=== PATIENT | female | born 1960 | race Caucasian/White ===

== ENCOUNTER 2017-01-11 14:53 | Observation (INO) | payer BC ==
[2017-01-11] MEDS ORDERED: TRAMADOL HCL 50 MG TABLET PO ONE (16:30)
[2017-01-11] MEDS ORDERED: ONDANSETRON HCL INJ/PF 4 MG/2 ML SDV IV PRN (17:19)
[2017-01-11] MEDS ORDERED: HYDRALAZINE HCL INJ/PF 20 MG/1 ML SDV IV PRN (17:24)
--- NOTE | 2017-01-11 17:50 | PDOC H&P ---
History of Present Illness Admission Date/PCP: 01/11/17 14:53 IMTIAZ OCHOA MD Patient complains of: Dizziness History of Present Illness: QUITA ENRIQUE is a 56 year old female, With no significant past medical history has been dealing with dizziness for the past month or so. It is more of lightheadedness and pressure in the head. Patient had long history of seasonal allergies and sinus allergies. The patient feels like she is to get a fall when she stooped forward and she will feel lightheaded and dizzy when she suddenly moves her head. This has been ongoing for the past month or so with associated palpitation and sometimes sweating but no nausea or vomiting. Patient will start developing some chest discomfort. This is characterized more localized and pounding heartbeat. Today while at work symptoms got worse and she almost passed out with sensation of darkening. She saw her primary care physician. Her blood pressure was noted to be elevated 190. She was then referred for admission. Concern about secondary hypertension causing her symptoms. Past Medical History Cardiac Medical History: Denies: Coronary Artery Disease, Myocardial Infarction, Hypertension Pulmonary Medical History: Reports: Other - Seasonal allergic rhinitis Denies: Asthma, Bronchitis, Chronic Obstructive Pulmonary Disease (COPD), Pneumonia Neurological Medical History: Denies: Seizures Musculoskeltal Medical History: Denies: Arthritis Hematology: Denies: Anemia Past Surgical History Past Surgical History: Reports: Cholecystectomy, Hysterectomy Social History Information Source: Patient Smoking Status: Never Smoker Frequency of Alcohol Use: Occasional Hx Recreational Drug Use: No Drugs: None Hx Prescription Drug Abuse: No Family History Family History: Hypertension, Other - Heart disease Parental Family History Reviewed: Yes Children Family History Reviewed: Yes Sibling(s) Family History Reviewed.: Yes Medication/Allergy Home Medications: Estrogens,Conjugated [Premarin 0.625 mg Tablet] 1 tab PO DAILY 11/25/13 Oxycodone HCl/Acetaminophen [Percocet 5-325 mg Tablet] 1 tab PO Q4HP 11/25/13 Allergies/Adverse Reactions: No Known Allergies Allergy (Unverified 11/25/13 08:37) Review of Systems Constitutional: PRESENT: headache(s) - Occasional. ABSENT: chills, fever(s), night sweats, weakness, weight gain, weight loss Eyes: PRESENT: visual disturbances - blurring of vision during the episode Ears: ABSENT: hearing changes Nose, Mouth, and Throat: ABSENT: mouth pain, sore throat Cardiovascular: PRESENT: chest pain - Pressure and tightness. ABSENT: dyspnea on exertion, edema, orthropnea, palpitations Respiratory: PRESENT: dyspnea. ABSENT: cough, hemoptysis, sputum Gastrointestinal: ABSENT: abdominal pain, constipation, diarrhea, hematemesis, hematochezia, nausea, vomiting Genitourinary: ABSENT: dysuria, hematuria Musculoskeletal: ABSENT: joint swelling Integumentary: ABSENT: rash, wounds Neurological: ABSENT: abnormal gait, abnormal speech, confusion, dizziness, focal weakness, syncope Psychiatric: ABSENT: anxiety, depression, homidical ideation, suicidal ideation Endocrine: ABSENT: cold intolerance, heat intolerance, polydipsia, polyuria Hematologic/Lymphatic: ABSENT: easy bleeding, easy bruising Physical Exam Vital Signs: Temp Pulse Resp BP Pulse Ox 98.4 F 65 16 171/75 H 100 01/11/17 15:48 01/11/17 15:48 01/11/17 15:48 01/11/17 15:48 01/11/17 15:48 Intake & Output 01/10/17 01/11/17 01/12/17 06:59 06:59 06:59 Weight 59.5 kg General appearance: PRESENT: no acute distress, well-developed, well-nourished Head exam: PRESENT: atraumatic, normocephalic Eye exam: PRESENT: conjunctiva pink, EOMI, PERRLA. ABSENT: scleral icterus Ear exam: PRESENT: normal external ear exam Mouth exam: PRESENT: moist, tongue midline Neck exam: ABSENT: carotid bruit, JVD, lymphadenopathy, thyromegaly Respiratory exam: PRESENT: clear to auscultation soraya. ABSENT: rales, rhonchi, wheezes Cardiovascular exam: PRESENT: RRR. ABSENT: diastolic murmur, rubs, systolic murmur Pulses: PRESENT: normal dorsalis pedis pul Vascular exam: PRESENT: normal capillary refill GI/Abdominal exam: PRESENT: normal bowel sounds, soft. ABSENT: distended, guarding, mass, organolmegaly, rebound, tenderness Rectal exam: PRESENT: deferred Extremities exam: PRESENT: full ROM. ABSENT: calf tenderness, clubbing, pedal edema Neurological exam: PRESENT: alert, awake, oriented to person, oriented to place , oriented to time, oriented to situation Psychiatric exam: PRESENT: appropriate affect, normal mood. ABSENT: homicidal ideation, suicidal ideation Skin exam: PRESENT: dry, intact, warm. ABSENT: cyanosis, rash Assessment & Plan - Diagnosis (1) Chest pain Qualifiers: Chest pain type: unspecified Qualified Code(s): R07.9 - Chest pain, unspecified Is this a current diagnosis for this admission?: Yes (2) Dizziness Is this a current diagnosis for this admission?: Yes (3) Near syncope Is this a current diagnosis for this admission?: Yes - Time Time Spent: 30 to 50 Minutes Anticipated discharge: Home Within: within 24 hours - Plan Summary Plan Summary: The patient will be admitted to telemetry for observation. I will try the patient on steroids 1 dose intravenously with antihistamine as well as Antivert. We will obtain CT scan of the brain as well as echocardiogram. We will obtain aldosterone level as well as urine catecholamines and serum catecholamines. We will likewise do a renin activity. We will give as needed hydralazine for systolic blood pressure greater than 180. DVT prophylaxis with Lovenox will be placed. We will obtain routine blood works as well as thyroid panel as well. Further testing depends on initial evaluations outlined above. 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
[2017-01-11] MEDS ORDERED: DEXAMETHASONE SOD PHOS INJ 10 MG/1 ML VIAL IV ONE ×2 (18:00→22:00)
[2017-01-11] MEDS ORDERED: ENOXAPARIN SODIUM INJ 40 MG/0.4 ML DISP.SYRIN SUBCUT ONE ×2 (18:00→22:00)
[2017-01-11] MEDS ORDERED: CETIRIZINE 10 MG TABLET PO ONE (18:00)
[2017-01-11] MEDS: DOCUSATE SODIUM 100 MG CAPSULE PO SCH (18:52)
--- NOTE | 2017-01-11 18:54 | EKG REPORT ---
SEVERITY:- ABNORMAL ECG - SINUS RHYTHM QTc IS PROLONGED >>470 MS. UNABLE TO MEASURE ON SCREEN, WILL DO IT FROM PAPER TRACING TO BE CERTAIN. : Confirmed by: Canelo Leon MD 11-Jan-2017 18:53:55
[2017-01-11 19:38] LABS: CREATINE KINASE MB 0.46 ng/mL (<4.55)
[2017-01-11 19:39] LABS: TROPONIN I < 0.012 ng/mL
[2017-01-11 20:06] LABS: ANION GAP 12 (5-19); BLOOD UREA NITROGEN 14 mg/dL (7-20); CARBON DIOXIDE 24 mmol/L (22-30); CHLORIDE 103 mmol/L (98-107); CREATININE RESULT 0.66 mg/dL (0.52-1.25); GLUCOSE 157 mg/dL (75-110); POTASSIUM 3.9 mmol/L (3.6-5.0); SODIUM 139.3 mmol/L (137-145)
[2017-01-11 20:07] LABS: CALCIUM 9.9 mg/dL (8.4-10.2)
[2017-01-11] MEDS ORDERED: NORMAL SALINE 1000 ML 500 ML IV ONE (20:58)
[2017-01-11 21:20] LABS: ABSOLUTE EOSINOPHILS # (AUTO) 0.1 10^3/uL (0.0-0.6); ABSOLUTE LYMPHOCYTES (AUTO) 1.8 10^3/uL (0.5-4.7); ABSOLUTE MONOCYTES (AUTO) 0.3 10^3/uL (0.1-1.4); ABSOLUTE NEUT (AUTO) 3.6 10^3/uL (1.7-8.2); BASOPHILS % (AUTO) 0.6 % (0-2); EOSINOPHILS % (AUTO) 2.1 % (0-6); HEMATOCRIT 38.5 % (36.0-47.0); HEMOGLOBIN 13.3 g/dL (12.0-15.5); HGB HCT DIFFERENCE 1.4; LYMPHOCYTES % (AUTO) 30.9 % (13-45); MEAN CORPUSCULAR HGB CONC 34.4 g/dL (32.0-36.0); MEAN CORPUSCULAR VOLUME 93 fl (80-97); MONOCYTES % (AUTO) 5.2 % (3-13); RED BLOOD COUNT 4.15 10^6/uL (3.72-5.28); RED CELL DISTRIBUTION WIDTH 12.3 % (11.5-14.0); SEGMENTED NEUTROPHILS % (AUTO) 61.2 % (42-78); WHITE BLOOD COUNT 5.8 10^3/uL (4.0-10.5)
[2017-01-11 21:31] LABS: ALANINE AMINOTRANSFERASE 24 U/L (9-52); ALBUMIN 4.1 g/dL (3.5-5.0); ALKALINE PHOSPHATASE 76 U/L (38-126); ASPARTATE AMINO TRANSFERASE 25 U/L (14-36); BILIRUBIN,DIRECT 0.4 mg/dL (0.0-0.4); BILIRUBIN,TOTAL 1.1 mg/dL (0.2-1.3); TOTAL PROTEIN 7.2 g/dL (6.3-8.2)
[2017-01-11 21:33] LABS: ALCOHOL < 10 mg/dL (NONE DETECTED)
[2017-01-11] MEDS: MECLIZINE HCL 12.5 MG TABLET PO SCH (22:19)
[2017-01-11] MEDS ORDERED: LISINOPRIL 5 MG TABLET PO ONE (22:30)
[2017-01-11] MEDS ORDERED: HYDROCHLOROTHIAZIDE 12.5 MG CAPSULE PO ONE (22:30)
--- NOTE | 2017-01-11 22:52 | RADIOLOGY REPORT (SQ) ---
EXAM DESCRIPTION: CHEST PA/LAT COMPLETED DATE/TIME: 01/11/2017 10:43 pm REASON FOR STUDY: DIZZINESS, ELEV BP, ELEV DDIMER ALSO FOR VQ,CT SCAN COMPARISON: 01/18/2015. EXAM PARAMETERS: NUMBER OF VIEWS: two views TECHNIQUE: Digital Frontal and Lateral radiographic views of the chest acquired. RADIATION DOSE: NA LIMITATIONS: none FINDINGS: LUNGS AND PLEURA: No opacities, masses or pneumothorax. No pleural effusion. MEDIASTINUM AND HILAR STRUCTURES: No masses or contour abnormalities. HEART AND VASCULAR STRUCTURES: Heart normal size. No evidence for failure. BONES: No acute findings. HARDWARE: None in the chest. OTHER: No other significant finding. IMPRESSION: NO SIGNIFICANT RADIOGRAPHIC FINDING IN THE CHEST. TECHNICAL DOCUMENTATION: JOB ID: [id number] [employer]- All Rights Reserved
--- NOTE | 2017-01-11 23:02 | RADIOLOGY REPORT (SQ) ---
EXAM DESCRIPTION: CT HEAD COMBO COMPLETED DATE/TIME: 01/11/2017 10:53 pm REASON FOR STUDY: dizziness, headache COMPARISON: None. TECHNIQUE: Axial images acquired through the brain without and with intravenous contrast. Images re viewed with bone, brain and subdural windows. Images stored on PACS. All CT scanners at this facility use dose modulation, iterative reconstruction, and/or weight based d osing when appropriate to reduce radiation dose to as low as reasonably achievable (ALARA). [facility]: Dose Right [facility]: CareDose [facility]: Dose Right [facility]: Teradose 4D [facility]: Smart Picture Tech CONTRAST TYPE AND DOSE: contrast/concentration: Isovue 370.00 mg/ml; Total Contrast Delivered: 50.0 ml; Total Saline Delivered: 50.0 ml RENAL FUNCTION: BUN 14 creatinine 0.66. RADIATION DOSE: Up-to-date CT equipment and radiation dose reduction techniques were employed. CTDIv ol: 64.6 mGy. DLP: 2326 mGy-cm.. LIMITATIONS: None. FINDINGS: VENTRICLES: Normal size and contour. CEREBRUM: No masses. No hemorrhage. No midline shift. Normal fierro/white matter differentiation. No ev idence for acute infarction. No enhancing lesions. CEREBELLUM: No masses. No hemorrhage. No alteration of density. No evidence for acute infarction. No enhancing lesions. EXTRA-AXIAL SPACES: No fluid collections. No enhancing lesions. ORBITS AND GLOBE: No intra- or extraconal masses. Normal contour of globe without masses. CALVARIUM: No fracture. PARANASAL SINUSES: No fluid or mucosal thickening. SOFT TISSUES: No mass or hematoma. OTHER: No other significant finding. IMPRESSION: NORMAL BRAIN CT WITHOUT AND WITH CONTRAST. TECHNICAL DOCUMENTATION: JOB ID: [id number] Quality ID # [id number]: Final reports with documentation of one or more dose reduction techniques (e.g., Au tomated exposure control, adjustment of the mA and/or kV according to patient size, use of iterative reconstruction technique) 2010 [employer]- All Rights Reserved
--- NOTE | 2017-01-11 23:34 | RADIOLOGY REPORT (SQ) ---
EXAM DESCRIPTION: NM LUNG PERFUSION SCAN COMPLETED DATE/TIME: 01/11/2017 11:25 pm REASON FOR STUDY: DIZZINESS, elev d dimer COMPARISON: Chest x-ray dated 01/11/2017. RADIONUCLIDE AND DOSE: 30.1 millicuries TC-99m MAA The route of agent administration: Intravenous TECHNIQUE: Eight views of the lungs acquired following injection of MAA. LIMITATIONS: None. FINDINGS: PERFUSION: Perfusion images with normal homogenous activity and no wedge-shaped or segment al defects. OTHER: No other significant finding. IMPRESSION: NORMAL PERFUSION LUNG SCAN. TECHNICAL DOCUMENTATION: JOB ID: [id number] [employer]- All Rights Reserved
[2017-01-11] MEDS: ACETAMINOPHEN 325 MG TABLET PO PRN (23:47)
[2017-01-12 00:14] LABS: URINE BARBITURATES SCREEN NEGATIVE; URINE METHADONE SCREEN NEGATIVE; URINE OPIATES LOW NEGATIVE; URINE PHENCYCLIDINE SCREEN NEGATIVE
[2017-01-12 00:18] LABS: APPEARANCE,URINE CLEAR; BILIRUBIN,URINE NEGATIVE (NEGATIVE); GLUCOSE, URINE NEGATIVE (NEGATIVE); KETONES,URINE NEGATIVE (NEGATIVE); LEUKOCYTE ESTERASE,URINE NEGATIVE (NEGATIVE); NITRITE,URINE NEGATIVE (NEGATIVE); PROTEIN,URINE NEGATIVE (NEGATIVE); URINE SPECIFIC GRAVITY 1.021; UROBILINOGEN,URINE NEGATIVE mg/dL (<2.0)
[2017-01-12 01:40] LABS: CREATINE KINASE MB 0.56 ng/mL (<4.55)
[2017-01-12 01:41] LABS: TROPONIN I < 0.012 ng/mL
[2017-01-12] MEDS: MECLIZINE HCL 12.5 MG TABLET PO SCH ×2 (05:35→13:25)
[2017-01-12] MEDS ORDERED: LANSOPRAZOLE 30 MG TAB.RAP.DR PO SCH (06:00)
[2017-01-12 06:56] LABS: HEMATOCRIT 38.1 % (36.0-47.0); HEMOGLOBIN 13.3 g/dL (12.0-15.5); HGB HCT DIFFERENCE 1.8; MEAN CORPUSCULAR HEMOGLOBIN 32.1 pg (27.0-33.4); MEAN CORPUSCULAR HGB CONC 34.8 g/dL (32.0-36.0); MEAN CORPUSCULAR VOLUME 92 fl (80-97); RED BLOOD COUNT 4.13 10^6/uL (3.72-5.28); RED CELL DISTRIBUTION WIDTH 12.5 % (11.5-14.0); WHITE BLOOD COUNT 4.8 10^3/uL (4.0-10.5)
[2017-01-12 07:19] LABS: CREATINE KINASE MB 0.43 ng/mL (<4.55)
[2017-01-12 07:30] LABS: TROPONIN I < 0.012 ng/mL
[2017-01-12] MEDS: ACETAMINOPHEN 325 MG TABLET PO PRN ×2 (08:21→14:59)
[2017-01-12] MEDS ORDERED: LISINOPRIL 5 MG TABLET PO SCH (10:00)
[2017-01-12] MEDS ORDERED: HYDROCHLOROTHIAZIDE 12.5 MG CAPSULE PO SCH (10:00)
[2017-01-12] MEDS ORDERED: ENOXAPARIN SODIUM INJ 40 MG/0.4 ML DISP.SYRIN SUBCUT SCH (10:00)
[2017-01-12] MEDS: DOCUSATE SODIUM 100 MG CAPSULE PO SCH (10:20)
[2017-01-12] MEDS ORDERED: ALPRAZOLAM 0.5 MG TABLET PO ONE (14:00)
--- NOTE | 2017-01-12 15:16 | RADIOLOGY REPORT (SQ) ---
EXAM DESCRIPTION: MRI HEAD WITHOUT COMPLETED DATE/TIME: 01/12/2017 2:45 pm REASON FOR STUDY: dizziness COMPARISON: CT brain 01/11/2017 TECHNIQUE: Multiplanar imaging includes non-contrasted T1, T2, FLAIR, and diffusion with ADC map seq uences. Images stored on PACS. LIMITATIONS: None. FINDINGS: ANATOMY: No anomalies. Normal vascular flow voids. Pituitary fossa normal. CSF SPACES: Normal in size and contour. No hemorrhage. CEREBRUM: Sulci and gyri normal in size and contour. Normal white matter signal on FLAIR imaging. No evidence of hemorrhage, mass, or extraaxial fluid collection. POSTERIOR FOSSA: No signal alteration. No hemorrhage. No edema, masses or mass effect. Internal karen tory canals, cerebello-pontine angles, mastoids normal. DIFFUSION IMAGING: Negative for acute or sub-acute infarction. ORBITS: No masses. Globes normal. PARANASAL SINUSES: No fluid levels. Mucosa normal. OTHER: No other significant finding. IMPRESSION: NORMAL MRI OF THE BRAIN WITHOUT INTRAVENOUS GADOLINIUM CONTRAST. EVIDENCE OF ACUTE STROKE: NO. TECHNICAL DOCUMENTATION: JOB ID: [id number]- All Rights Reserved
[2017-01-12 15:45] VITALS: BP 100/57
[2017-01-15 12:37] LABS: EPINEPHRINE 39 pg/mL (0-62); NOREPINEPHRINE 635 pg/mL (0-874)
[2017-01-15 13:26] LABS: DOPAMINE <30 pg/mL (0-48)
--- NOTE | 2017-01-15 19:21 | PDOC DISCHARGE SUMMARY ---
General - Admit/Disc Date/PCP Admission Date/Primary Care Provider: 01/11/17 16:59 IMTIAZ OCHOA MD Discharge Date: 01/13/17 - Discharge Diagnosis (1) Chest pain Is this a current diagnosis for this admission?: Yes (2) Dizziness Is this a current diagnosis for this admission?: Yes (3) Near syncope Is this a current diagnosis for this admission?: Yes - Additional Information Discharge Diet: Cardiac - Low-salt Discharge Activity: Activity As Tolerated, Balance Activity w/Rest, Slowly Increase Activity Home Medications: Cetirizine HCl [Zyrtec 10 mg Tablet] 1 tab PO DAILY PRN #30 tablet 01/12/17 Lisinopril [Prinivil 5 mg Tablet] 2.5 mg PO DAILY #30 tablet 01/12/17 Meclizine HCl [Antivert 25 mg Tablet] 25 mg PO TID PRN #40 tablet 01/12/17 Methylprednisolone [Medrol Dosepack (4 mg/Tab) 21 Tab/Dosepak] 4 mg PO ASDIR PRN #21 tab.ds.pk 01/12/17 Additional Information: 24 hour urine for catecholamines. Follow-up workup for renin aldosterone and cortisol level. History of Present Illness Patient complains of: Direct admission for dizziness History of Present Illness: QUITA ENRIQUE is a 56 year old female, With no significant past medical history has been dealing with dizziness for the past month or so. It is more of lightheadedness and pressure in the head. Patient had long history of seasonal allergies and sinus allergies. The patient feels like she is to get a fall when she stooped forward and she will feel lightheaded and dizzy when she suddenly moves her head. This has been ongoing for the past month or so with associated palpitation and sometimes sweating but no nausea or vomiting. Patient will start developing some chest discomfort. This is characterized more localized and pounding heartbeat. Today while at work symptoms got worse and she almost passed out with sensation of darkening. She saw her primary care physician. Her blood pressure was noted to be elevated 190. She was then referred for admission. Concern about secondary hypertension causing her symptoms. Hospital Course Hospital Course: The patient was admitted to telemetry. Patient had a CT scan of the brain showing no acute abnormality and MRI of the brain was likewise obtained showing no stroke. The patient was tried on treatment for vertigo with some improvement. 24 hour urine for catecholamines were obtained and results are pending. Likewise testing for secondary hypertension were done including renin , aldosterone and cortisol. Results are likewise pending. The patient was referred to cardiology, Dr. Leon saw the patient and recommended treatment of hypertension with ARTHUR inhibitor and diuretic. Patient apparently developed more lightheadedness with the intake of medication and therefore the ARTHUR inhibitor was decreased and the diuretic was discontinued. The rest of the hospital stays unremarkable. Physical Exam Vital Signs: Temp Pulse Resp BP Pulse Ox 98.1 F 83 16 100/57 L 100 01/12/17 15:12 01/12/17 15:15 01/12/17 15:12 01/12/17 15:15 01/12/17 15:15 General appearance: PRESENT: no acute distress, cooperative Head exam: PRESENT: normocephalic Eye exam: PRESENT: EOMI Mouth exam: PRESENT: moist, neck supple Neck exam: ABSENT: JVD Respiratory exam: PRESENT: clear to auscultation soraya Cardiovascular exam: PRESENT: RRR. ABSENT: gallop GI/Abdominal exam: PRESENT: soft. ABSENT: distended, tenderness Extremities exam: ABSENT: pedal edema Neurological exam: PRESENT: alert, awake, oriented to person, oriented to place , oriented to time, oriented to situation Skin exam: PRESENT: dry, warm. ABSENT: cyanosis Results Laboratory Results: 01/12/17 06:43 01/11/17 18:40 01/11/17 01/11/17 01/12/17 18:40 18:40 00:33 Creatine Kinase 49 48 CK-MB (CK-2) 0.46 Troponin I < 0.012 01/12/17 01/12/17 01/12/17 00:33 06:43 06:43 Creatine Kinase 44 CK-MB (CK-2) 0.56 0.43 Troponin I < 0.012 < 0.012 Impressions: Chest X-Ray 01/11/17 00:00 IMPRESSION: NO SIGNIFICANT RADIOGRAPHIC FINDING IN THE CHEST. Head CT 01/11/17 00:00 IMPRESSION: NORMAL BRAIN CT WITHOUT AND WITH CONTRAST. Lung Scan-VQ NM 01/11/17 21:03 IMPRESSION: NORMAL PERFUSION LUNG SCAN. Head MRI 01/12/17 00:00 IMPRESSION: NORMAL MRI OF THE BRAIN WITHOUT INTRAVENOUS GADOLINIUM CONTRAST. EVIDENCE OF ACUTE STROKE: NO. Qualifiers PATEINT BEING DISCHARGED WITH ANY OF THE FOLLOWING DIAGNOSIS?: No Plan Discharge Plan: Follow-up with primary care physician in 1 week. Follow-up with Dr. Leon in 1 week. Time Spent: Less than 30 Minutes
== END 2017-01-12 17:48 | disposition home or self-care (01) ==
LOC: UNDOADMOB 14:53 → 3N 14:53
DX: R07.89 Other chest pain (principal); R42 Dizziness and giddiness; T44.5X5A Adverse effect of predominantly beta-adrenoreceptor agonists, initial encounter; T50.2X5A Adverse effect of carbonic-anhydrase inhibitors, benzothiadiazides and other diuretics, initial encounter; Y92.230 Patient room in hospital as the place of occurrence of the external cause; R55 Syncope and collapse; R06.00 Dyspnea, unspecified; R51 Headache; H53.8 Other visual disturbances; J30.2 Other seasonal allergic rhinitis; I10 Essential (primary) hypertension; Z90.49 Acquired absence of other specified parts of digestive tract; Z79.891 Long term (current) use of opiate analgesic; Z79.890 Hormone replacement therapy; Z90.710 Acquired absence of both cervix and uterus
CPT/HCPCS: 36415 ×2; 82553 ×2; 82088; 80307 ×2; 82383; 82550 ×2; 83735; 84244; 84443; 85025; 85027; 80076; 80048; 81001; 84484 ×2; 82533; 85379; 70551; 71020; 78580; 70470; 93005; 93010; G0378 ×2; G0379; A9540; J3490 ×4; J1650 ×2; Q9969

== ENCOUNTER → 2017-03-06 | Outpatient (CLI) | payer BC ==
--- NOTE | 2017-03-06 09:40 | RADIOLOGY REPORT ---
STRESS TEST REPORT PATIENT NAME: QUIAT ENRIQUE ROOM#: DATE OF SERVICE: 03/06/2017 AGE: 56Y ORDER#: [id number] REFERRING MD: ARANZA FLEMING M.D. INDICATION: Assessment of chest tightness and PVCs. Chest pain described as tightness in the chest. Coronary risk factors include 2, hypertension, family history. CURRENT MEDICATIONS: No beta blockers. REPORT Significant physical findings prior to stress testing showed a blood pressure of 148/81 and a heart rate of 67 BPM with no ectopy. Auscultation of the heart showed an S4 with no murmur. Resting 12-lead EKG showed normal sinus rhythm 67 BPM, normal ST segments, normal EKG. PROCEDURE: Patient exercised under standard Saud protocol. She walked a total of 8 minutes, reaching a peak heart rate of 169 BPM, which exceeded 100% of the maximum age-related heart rate (165). The test was stopped because of maximal heart rate achieved. Patient described no symptoms of any chest tightness, during exercise, at peak exercise, and post exercise. Exercise ECG showed no ST depression to suggest ischemia. No arrhythmias were seen. Blood pressure response was normal, at peak exercise, blood pressure was 186/57. Double product was 31 K. SUMMARY OF FINDINGS/IMPRESSION: 1. No chest tightness symptoms reduced. 2. No EKG evidence of ischemia. 3. Normal blood pressure response to exercise. 4. No exercise-induced PVC arrhythmias. 5. Good exercise tolerance, good aerobic capacity, negative maximal diagnostic EKG treadmill stress test. INTERPRETING PHYSICIAN: ARANZA FLEMING M.D. /: [id number] TT: [id number] ID: [id number] /: [id number] TD: [id number] JOB: [id number] cc:Fred BRAN M.D. > MTDJay
--- NOTE | 2017-03-06 18:52 | XCELERA REPORT ---
[address] [address] Transthoracic Echocardiogram Report Name: QUITA ENRIQUE Age: 56 yrs Gender: Female : 1960 Patient Status: Outpatient Patient Location: Study Date: 03/06/2017 08:49 AM Height: 62 in Weight: 130 lb BSA: 1.6 m2 Reason For Study: CP Ordering Physician: IMTIAZ OCHOA Performed By: Andie Thomas Interpretation Summary No signif post peric effusoion. Normal aortic root. AV is normal 3 cusps, no thickening, no , no AR. MV is normal, mild MAC, no MS, no MVP, mild MR with no LAEnlargement LV is normal, no LVH, normal LVEF 57% biplane. no LV diastoic dysfunction, and no regional wall motion abnormality. TR is mild RVSP is 23 mmHg, RAP is 3 mm Hg, no RH enlargement. No ASD. No Ebsteins. normal IVC. MMode/2D Measurements & Calculations RVDd: 3.1 cm LVIDd: 4.2 cm FS: 34.0 % Ao root diam: IVSd: 1.0 cm LVIDs: 2.8 cm EDV(Teich): 1.9 cm LVPWd: 0.98 cm 79.1 ml Ao root area: ESV(Teich): 29.0 ml 2.8 cm2 EF(Teich): 63.3 % EDV(MOD-sp4): SV(MOD-sp4): 88.8 ml 46.8 ml ESV(MOD-sp4): 42.0 ml EF(MOD-sp4): 52.7 % Doppler Measurements & Calculations MV E max jeet: MV dec slope: Ao V2 max: LV V1 max P.3 cm/sec 133.2 cm/sec 7.3 mmHg MV A max jeet: 594.8 cm/sec2 Ao max PG: LV V1 max: 86.9 cm/sec MV dec time: 7.1 mmHg 135.2 cm/sec MV E/A: 1.4 0.20 sec PA V2 max: PI end-d jeet: TR max jeet: 108.0 cm/sec 75.1 cm/sec 224.2 cm/sec PA max P.7 mmHg TR max P.1 mmHg Left Ventricle The left ventricle is normal in size, thickness and function. There is normal left ventricular wall thickness. The left ventricular ejection fraction is normal. LV EF is 57%. Doppler measurements suggest normal left ventricular diastolic function. No regional wall motion abnormalities noted. There is no thrombus. Right Ventricle The right ventricle is normal in size, thickness and function. The right ventricular systolic function is normal. Atria The right atrium is normal. The left atrial size is normal. The interatrial septum is intact with no evidence for an atrial septal defect. Mitral Valve There is mild mitral annular calcification. The mitral valve is normal in structure and function. There is no evidence of mitral valve prolapse. There is no vegetation seen on the mitral valve. There is no mitral valve stenosis. There is a mild amount of mitral regurgitation. Aortic Valve The aortic valve is trileaflet. The aortic valve opens well. The aortic valve is normal in structure and functions normally. There is no aortic valvular vegetation. There is no aortic valve stenosis. No aortic regurgitation is present. Tricuspid Valve The tricuspid is normal in structure and function. There is no tricuspid valve prolapse. There is no tricuspid stenosis. There is a trace or physiologic amount of tricuspid regurgitation. Pulmonic Valve There is a trace or physiologic amount of pulmonic regurgitation. Great Vessels The aortic root is normal size. I WMSI = 1.00 % Normal = 100 Segments Size X - Cannot 2 - 4 - 1-2 small Interpret 1 - Normal Hypokinetic 3 - AkineticDyskinetic 3-5 moderate 5 - 6-14 large Aneurysmal 15-16 diffuse : IMTIAZ OCHOA > Canelo Leon
== END ==
LOC: SP 07:05
PROVIDERS: ATTEND Internal Medicine Cardiovascular Disease
DX: R07.9 Chest pain, unspecified (principal); R00.2 Palpitations; I10 Essential (primary) hypertension
CPT/HCPCS: 93017; 93306

== ENCOUNTER → 2017-03-06 | Outpatient (CLI) | payer BC ==
[2017-03-06 07:26] LABS: ANION GAP 10 (5-19); BLOOD UREA NITROGEN 14 mg/dL (7-20); CALCIUM 10.1 mg/dL (8.4-10.2); CARBON DIOXIDE 29 mmol/L (22-30); CHLORIDE 103 mmol/L (98-107); CREATININE RESULT 0.72 mg/dL (0.52-1.25); GLUCOSE 87 mg/dL (75-110); POTASSIUM 4.4 mmol/L (3.6-5.0); SODIUM 141.7 mmol/L (137-145); TRIGLYCERIDES 66 mg/dL (<150)
[2017-03-06 07:37] LABS: DIRECT LDL 112 mg/dL (<100)
[2017-03-06 07:41] LABS: Direct HDL 131 mg/dL (>40)
== END ==
LOC: LAB 06:49
PROVIDERS: ATTEND Family Medicine
DX: I15.9 Secondary hypertension, unspecified (principal); Z79.899 Other long term (current) drug therapy
CPT/HCPCS: 36415; 80048; 80061

== ENCOUNTER → 2017-09-03 | Outpatient (CLI) | payer BC ==
[2017-09-03 07:30] LABS: ANION GAP 10 (5-19); BLOOD UREA NITROGEN 8 mg/dL (7-20); CALCIUM 9.8 mg/dL (8.4-10.2); CARBON DIOXIDE 30 mmol/L (22-30); CHLORIDE 103 mmol/L (98-107); GLUCOSE 91 mg/dL (75-110); POTASSIUM 4.8 mmol/L (3.6-5.0)
== END ==
LOC: LAB 06:40
PROVIDERS: ATTEND Family Medicine
DX: Z79.899 Other long term (current) drug therapy (principal)
CPT/HCPCS: 36415; 80048

== ENCOUNTER → 2018-06-05 | Outpatient (CLI) | payer BC ==
[2018-06-05 07:05] LABS: ABSOLUTE EOSINOPHILS # (AUTO) 0.1 10^3/uL (0.0-0.6); ABSOLUTE LYMPHOCYTES (AUTO) 1.8 10^3/uL (0.5-4.7); ABSOLUTE MONOCYTES (AUTO) 0.4 10^3/uL (0.1-1.4); ABSOLUTE NEUT (AUTO) 2.3 10^3/uL (1.7-8.2); BASOPHILS % (AUTO) 0.6 % (0-2); EOSINOPHILS % (AUTO) 2.3 % (0-6); HEMATOCRIT 41.2 % (36.0-47.0); HEMOGLOBIN 14.2 g/dL (12.0-15.5); LYMPHOCYTES % (AUTO) 38.6 % (13-45); MEAN CORPUSCULAR HEMOGLOBIN 31.3 pg (27.0-33.4); MEAN CORPUSCULAR HGB CONC 34.6 g/dL (32.0-36.0); MEAN CORPUSCULAR VOLUME 91 fl (80-97); PLATELET COUNT 197 10^3/uL (150-450); RED BLOOD COUNT 4.55 10^6/uL (3.72-5.28); RED CELL DISTRIBUTION WIDTH 12.8 % (11.5-14.0); SEGMENTED NEUTROPHILS % (AUTO) 50.5 % (42-78); TOTAL CELLS COUNTED % (AUTO) 100 %; WHITE BLOOD COUNT 4.6 10^3/uL (4.0-10.5)
[2018-06-05 07:20] LABS: ALANINE AMINOTRANSFERASE 30 U/L (9-52); ALBUMIN 4.9 g/dL (3.5-5.0); ALKALINE PHOSPHATASE 77 U/L (38-126); ANION GAP 9 (5-19); ASPARTATE AMINO TRANSFERASE 28 U/L (14-36); BILIRUBIN,DIRECT 0.1 mg/dL (0.0-0.4); BILIRUBIN,TOTAL 0.9 mg/dL (0.2-1.3); BLOOD UREA NITROGEN 11 mg/dL (7-20); CARBON DIOXIDE 27 mmol/L (22-30); CHLORIDE 106 mmol/L (98-107); CHOLESTEROL 272.21 mg/dL (0-200); GLUCOSE 97 mg/dL (75-110); POTASSIUM 4.7 mmol/L (3.6-5.0); SODIUM 141.6 mmol/L (137-145); TOTAL PROTEIN 7.9 g/dL (6.3-8.2); TRIGLYCERIDES 75 mg/dL (<150)
[2018-06-05 07:31] LABS: DIRECT LDL 123 mg/dL (<100)
[2018-06-05 11:14] LABS: FREE T4 (FREE THYROXINE) 1.1 ng/dL (0.78-2.19)
[2018-06-05 11:28] LABS: THYROID STIMULATING HORMONE 2.39 uIU/mL (0.47-4.68)
[2018-06-05 11:54] LABS: A TYPE INFLUENZA AG NEGATIVE (NEGATIVE); B INFLUENZA AG NEGATIVE (NEGATIVE)
== END ==
LOC: LAB 06:43
PROVIDERS: ATTEND Family Medicine
DX: I10 Essential (primary) hypertension (principal); J20.9 Acute bronchitis, unspecified; R63.5 Abnormal weight gain
CPT/HCPCS: 36415; 80053; 80061; 84439; 84443; 85025; 87804

== ENCOUNTER → 2018-12-31 | Outpatient (CLI) | payer BC ==
--- NOTE | 2018-12-31 18:55 | RADIOLOGY REPORT (SQ) ---
EXAM DESCRIPTION: ANKLE LEFT COMPLETE COMPLETED DATE/TIME: 12/31/2018 6:43 pm REASON FOR STUDY: (S93.402)Sprain of unspecified ligament of left ankle COMPARISON: None. NUMBER OF VIEWS: Three views. TECHNIQUE: AP, lateral, and oblique radiographic images acquired of the left ankle. LIMITATIONS: None. FINDINGS: MINERALIZATION: Normal. BONES: No acute fracture or dislocation. No worrisome bone lesions. JOINTS: No effusions. SOFT TISSUES: No soft tissue swelling. No foreign body. OTHER: No other significant finding. IMPRESSION: NEGATIVE STUDY OF THE LEFT ANKLE. NO RADIOGRAPHIC EVIDENCE OF ACUTE INJURY. TECHNICAL DOCUMENTATION: JOB ID: [id number] [employer]- All Rights Reserved Reading location - IP/workstation name: [email or web address]
--- NOTE | 2018-12-31 18:55 | RADIOLOGY REPORT (SQ) ---
EXAM DESCRIPTION: FOOT LEFT COMPLETE COMPLETED DATE/TIME: 12/31/2018 6:43 pm REASON FOR STUDY: (S93.402)Sprain of unspecified ligament of left ankle COMPARISON: None. NUMBER OF VIEWS: Three views. TECHNIQUE: AP, lateral and oblique radiographic images acquired of the left foot. LIMITATIONS: None. FINDINGS: MINERALIZATION: Normal. BONES: No acute fracture or dislocation. No worrisome bone lesions. JOINTS: No effusions. SOFT TISSUES: No soft tissue swelling. No foreign body. OTHER: No other significant finding. IMPRESSION: NEGATIVE STUDY OF THE LEFT FOOT. NO RADIOGRAPHIC EVIDENCE OF ACUTE INJURY. TECHNICAL DOCUMENTATION: JOB ID: [id number] [employer]- All Rights Reserved Reading location - IP/workstation name: [email or web address]
== END ==
LOC: RAD 18:21
PROVIDERS: ATTEND Family Medicine
DX: S93.402A Sprain of unspecified ligament of left ankle, initial encounter (principal); X58.XXXA Exposure to other specified factors, initial encounter

== ENCOUNTER → 2019-01-27 | Outpatient (CLI) | payer BC ==
[2019-01-27 06:52] LABS: ABSOLUTE BASOPHILS # (AUTO) 0.1 10^3/uL (0.0-0.2); ABSOLUTE EOSINOPHILS # (AUTO) 0.1 10^3/uL (0.0-0.6); ABSOLUTE LYMPHOCYTES (AUTO) 1.9 10^3/uL (0.5-4.7); ABSOLUTE MONOCYTES (AUTO) 0.4 10^3/uL (0.1-1.4); ABSOLUTE NEUT (AUTO) 2.6 10^3/uL (1.7-8.2); BASOPHILS % (AUTO) 1.1 % (0-2); EOSINOPHILS % (AUTO) 2.8 % (0-6); HEMATOCRIT 41.1 % (36.0-47.0); HEMOGLOBIN 14.1 g/dL (12.0-15.5); LYMPHOCYTES % (AUTO) 36.9 % (13-45); MEAN CORPUSCULAR HGB CONC 34.2 g/dL (32.0-36.0); MEAN CORPUSCULAR VOLUME 91 fl (80-97); MONOCYTES % (AUTO) 8.1 % (3-13); PLATELET COUNT 200 10^3/uL (150-450); RED BLOOD COUNT 4.54 10^6/uL (3.72-5.28); RED CELL DISTRIBUTION WIDTH 12.4 % (11.5-14.0); SEGMENTED NEUTROPHILS % (AUTO) 51.1 % (42-78); TOTAL CELLS COUNTED % (AUTO) 100 %; WHITE BLOOD COUNT 5.1 10^3/uL (4.0-10.5)
[2019-01-27 07:10] LABS: ALBUMIN 4.6 g/dL (3.5-5.0); ALKALINE PHOSPHATASE 81 U/L (38-126); ANION GAP 10 (5-19); ASPARTATE AMINO TRANSFERASE 29 U/L (14-36); BILIRUBIN,TOTAL 1.4 mg/dL (0.2-1.3); BLOOD UREA NITROGEN 17 mg/dL (7-20); CALCIUM 9.8 mg/dL (8.4-10.2); CARBON DIOXIDE 25 mmol/L (22-30); CHLORIDE 103 mmol/L (98-107); CHOLESTEROL 270.78 mg/dL (0-200); GLUCOSE 91 mg/dL (75-110); POTASSIUM 4.4 mmol/L (3.6-5.0); TOTAL PROTEIN 7.9 g/dL (6.3-8.2); TRIGLYCERIDES 72 mg/dL (<150)
[2019-01-27 07:22] LABS: DIRECT LDL 164 mg/dL (<100)
[2019-01-27 07:28] LABS: FREE T4 (FREE THYROXINE) 1.13 ng/dL (0.78-2.19)
[2019-01-27 07:42] LABS: THYROID STIMULATING HORMONE 2.39 uIU/mL (0.47-4.68)
== END ==
LOC: LAB 05:58
PROVIDERS: ATTEND Family Medicine
DX: R63.5 Abnormal weight gain (principal); Z13.1 Encounter for screening for diabetes mellitus; Z13.0 Encounter for screening for diseases of the blood and blood-forming organs and certain disorders involving the immune mechanism; Z13.220 Encounter for screening for lipoid disorders
CPT/HCPCS: 36415; 80053; 80061; 84439; 84443; 85025

== ENCOUNTER 2019-02-04 15:53 | Day surgery (SDC) | payer BC ==
[2019-02-04] MEDS ORDERED: ONDANSETRON HCL INJ/PF 4 MG/2 ML SDV ONE (16:04)
[2019-02-04] MEDS ORDERED: DIPHENHYDRAMINE HCL 50 MG/ML VIAL ONE (16:04)
[2019-02-04] MEDS ORDERED: FENTANYL CITRATE INJ/PF 100 MCG/2 ML AMPUL ONE (16:04)
[2019-02-04] MEDS ORDERED: FLUMAZENIL INJ 0.5 MG/5 ML VIAL ONE (16:05)
[2019-02-04] MEDS ORDERED: EPINEPHRINE INJ 1 MG/10 ML DISP.SYRIN ONE (16:05)
[2019-02-04] MEDS ORDERED: NALOXONE HCL INJ/PF 0.4 MG/1 ML SDV ONE (16:05)
[2019-02-04] MEDS ORDERED: GLUCAGON,HUMAN RECOMB 1 MG INJ ONE (16:05)
[2019-02-04] MEDS: MIDAZOLAM 2 MG/2 ML INJ ONE ×2 (16:50→16:55)
--- NOTE | 2019-02-04 17:44 | Operative Report ---
Operative Report DATE OF SURGERY: 02/04/19 Operative Report: Pre-op diagnosis: Colon cancer screening Post-op diagnosis: 1. Cecal polyp 2. Sigmoid diverticulosis Surgery: Colonoscopy with polypectomy Medications: Versed 3mg, Fentanyl 100mcg IV push Tissue removed: Colon polyp Procedure: After informed consent obtained from patient, conscious sedation was achieved. A digital rectal examination was performed and this was unremarkable. The colonoscope was inserted into the rectum and advanced to the cecum. The appendiceal orifice and the terminal ileum were both identified. The mucosa was examined into details as the colonoscope was slowly pulled out of the patient. The endoscope was retroflexed in the rectum. Patient tolerated the procedure well. Findings Terminal ileum: Cecum: 5 mm polyp removed with the cold snare Ascending colon: Normal Transverse colon: Normal Descending colon: Normal Sigmoid colon: A few diverticuli noted Rectum: Normal except for internal hemorrhoids Plan: Await pathology. Follow-up colonoscopy in 5 years OPERATION: .
[2019-02-04 18:06] VITALS: BP 141/70
== END 2019-02-04 18:05 | disposition home or self-care (01) ==
LOC: END 15:53
PROVIDERS: ATTEND Internal Medicine Gastroenterology
DX: Z12.11 Encounter for screening for malignant neoplasm of colon (principal); D12.0 Benign neoplasm of cecum; K57.30 Diverticulosis of large intestine without perforation or abscess without bleeding; I10 Essential (primary) hypertension; Z79.899 Other long term (current) drug therapy
CPT/HCPCS: 45385; 88305 ×2; J2250; J3010; J2405; J0171; J1200; J1610; J2310; J3490

== ENCOUNTER → 2019-10-28 | Outpatient (CLI) | payer BC ==
--- NOTE | 2019-10-29 11:01 | RADIOLOGY REPORT (SQ) ---
EXAM DESCRIPTION: MRI LT LOWER JOINT WITHOUT IMAGES COMPLETED DATE/TIME: 10/28/2019 2:34 pm REASON FOR STUDY: M25.572 PERONEAL TENDINITIS, LEFT LEG M76.72 PERONEAL TENDINITIS, LEFT LEG COMPARISON: None. TECHNIQUE: Non arthrogram noncontrast MRI left ankle images acquired and stored on PACS. Multiplanar images include fat sensitive sequences as T1, fluid sensitive sequences as FST2/STIR, cartilage sens itive sequences as FSPD, and gradient echo sequences. LIMITATIONS: None. FINDINGS: BONE MARROW: No alteration of signal to suggest marrow replacement or edema. No occult fra cture. No large osteophytes. EFFUSIONS: No subtalar or tibiotalar effusions. No loose bodies. OSSEOUS ARTICULATIONS: Normal tibiotalar, subtalar, talonavicular and calcaneocuboid joints. TALAR DOME AND TIBIAL PLAFOND: Normal cartilage. No osteochondral defect. ACHILLES TENDON: Intact without partial or full-thickness tear. No adjacent bursal fluid or edema. TIBIALIS ANTERIOR TENDON: Intact without edema at the 1st MT attachment. TIBIALIS POSTERIOR TENDON: Normal morphology and no edema at the navicular attachment. Trace tendon sheath fluid proximal and distal to the medial malleolus on axial images 9-14. FLEXOR HALLUCIS LONGUS AND FLEXOR DIGITORUM TENDONS: Normal morphology and no tendon sheath fluid. No edema of the os trigonum. PERONEUS LONGUS: Trace distal tendon sheath fluid. There is high signal in the peroneus longus tend on itself as it wraps underneath the cuboid bone, best shown on axial images 23-25, and coronal image s 13-15. PERONEUS BREVIS TENDON: Normal morphology and no tendon sheath fluid. No subluxation. ATFL, CFL, PTFL: Intact. No thickening or signal alteration. No wili-ligamentous fluid. DELTOID LIGAMENT: Visualized components intact. TARSAL TUNNEL: No masses. No muscle atrophy. SINUS TARSI: No fluid. No reactive marrow edema or erosions. PLANTAR FASCIA: There is plantar fasciitis, with mild increased STIR signal superficial and deep to t he plantar fascia attachment to the calcaneus, medial bundle, best shown on sagittal images 7-10 ADJACENT SOFT TISSUES: No masses. OTHER: No other significant finding. IMPRESSION: High signal distal peroneus longus tendon as it courses around the cuboid bone. Trace p eroneus longus tendon sheath fluid distally. Trace fluid along the posterior tibialis tendon sheath Mild plantar fasciitis, medial bundle attachment at the calcaneus TECHNICAL DOCUMENTATION: JOB ID: [id number] 2010 [employer]- All Rights Reserved Reading location - IP/workstation name: [email or web address]
== END ==
LOC: RAD 13:56
PROVIDERS: ATTEND Orthopaedic Surgery
DX: M25.572 Pain in left ankle and joints of left foot (principal)

== ENCOUNTER → 2020-02-03 | Outpatient (CLI) | payer BC ==
[2020-02-03 07:14] LABS: ALBUMIN 4.5 g/dL (3.5-5.0); ALKALINE PHOSPHATASE 92 U/L (38-126); ANION GAP 11 (5-19); ASPARTATE AMINO TRANSFERASE 26 U/L (14-36); BILIRUBIN,DIRECT 0.2 mg/dL (0.0-0.4); BILIRUBIN,TOTAL 0.8 mg/dL (0.2-1.3); BLOOD UREA NITROGEN 12 mg/dL (7-20); CALCIUM 9.5 mg/dL (8.4-10.2); CARBON DIOXIDE 24 mmol/L (22-30); CHLORIDE 106 mmol/L (98-107); GLUCOSE 110 mg/dL (75-110); POTASSIUM 4.7 mmol/L (3.6-5.0); TOTAL PROTEIN 7.7 g/dL (6.3-8.2); TRIGLYCERIDES 117 mg/dL (<150)
[2020-02-03 07:26] LABS: DIRECT LDL 153 mg/dL (<100)
[2020-02-03 07:33] LABS: FREE T3 4.21 pg/mL (2.77-5.27); FREE T4 (FREE THYROXINE) 1.05 ng/dL (0.78-2.19)
[2020-02-03 07:47] LABS: THYROID STIMULATING HORMONE 2.53 uIU/mL (0.47-4.68)
== END ==
LOC: LAB 06:17
PROVIDERS: ATTEND Family Medicine
DX: E03.9 Hypothyroidism, unspecified (principal); E78.5 Hyperlipidemia, unspecified; I10 Essential (primary) hypertension; I45.81 Long QT syndrome; R73.01 Impaired fasting glucose
CPT/HCPCS: 36415; 80053; 80061; 84439; 84443; 84481

== ENCOUNTER → 2020-02-04 | Outpatient (CLI) | payer BC ==
[2020-02-04 13:11] LABS: ABSOLUTE EOSINOPHILS # (AUTO) 0.2 10^3/uL (0.0-0.6); ABSOLUTE LYMPHOCYTES (AUTO) 1.8 10^3/uL (0.5-4.7); ABSOLUTE MONOCYTES (AUTO) 0.3 10^3/uL (0.1-1.4); BASOPHILS % (AUTO) 0.4 % (0-2); EOSINOPHILS % (AUTO) 2.5 % (0-6); HEMATOCRIT 41.3 % (36.0-47.0); HEMOGLOBIN 14.5 g/dL (12.0-15.5); LYMPHOCYTES % (AUTO) 27.9 % (13-45); MEAN CORPUSCULAR HEMOGLOBIN 32.1 pg (27.0-33.4); MEAN CORPUSCULAR HGB CONC 35.2 g/dL (32.0-36.0); MEAN CORPUSCULAR VOLUME 91 fl (80-97); MONOCYTES % (AUTO) 5.3 % (3-13); PLATELET COUNT 211 10^3/uL (150-450); RED BLOOD COUNT 4.53 10^6/uL (3.72-5.28); RED CELL DISTRIBUTION WIDTH 12.7 % (11.5-14.0); SEGMENTED NEUTROPHILS % (AUTO) 63.9 % (42-78); TOTAL CELLS COUNTED % (AUTO) 100 %; WHITE BLOOD COUNT 6.3 10^3/uL (4.0-10.5)
== END ==
LOC: LAB 08:23
PROVIDERS: ATTEND Family Medicine
DX: R73.01 Impaired fasting glucose (principal); Z13.0 Encounter for screening for diseases of the blood and blood-forming organs and certain disorders involving the immune mechanism
CPT/HCPCS: 36415; 83036; 85025

== ENCOUNTER → 2020-05-10 | Outpatient (CLI) | payer BC ==
[~2020-05-10] MED LIST: COVID-19 VACCINE (PFIZER)/PF 30 MCG/0.3 ML VIAL IM ONE; EPINEPHRINE INJ/PF 1 MG/1 ML AMPULE IM PRN
== END ==
LOC: EMPHEALTH 11:00
PROVIDERS: ATTEND Internal Medicine
DX: Z23 Encounter for immunization (principal)
CPT/HCPCS: 91300

== ENCOUNTER → 2020-05-31 | Outpatient (CLI) | payer BC | LOC: EMPHEALTH 08:14 | PROVIDERS: ATTEND Internal Medicine | DX: Z23 Encounter for immunization (principal) | CPT/HCPCS: 91300 ==